=== PATIENT | female | born 1990 | race Two or more races ===

== ENCOUNTER 2025-04-11 06:16 | Observation (INO) | payer MEDICAID ==
[~2025-04-11] VITALS: Ht 160 cm; Wt 68.0 kg
[2025-04-11] MEDS: TERBUTALINE SULFATE 1 MG/ML 1ML VIAL SC SCH (15:20)
--- NOTE | 2025-04-11 16:28 | DVH ---
EXAM: US OBSTERICAL LIMITED HISTORY: Contractions/PTL Macro COMPARISON: None TECHNIQUE: Multiple transabdominal real-time grayscale sonographic images through the gravid uterus of the fetus with duplex Doppler color flow and M-mode spectral analysis Findings/Impression: Single live intrauterine in vertex presentation with heart rate of 151 bpm. The placenta is anterior in location without previa, accreta, or abruption. The cervix appears closed and measures 4.6 cm in length. Myomatous uterus.
[2025-04-11] MEDS ORDERED: PREN-96 PO (16:31)
--- NOTE | 2025-04-12 08:31 | DVHDS2 ---
Physician Discharge Progress N Final Diagnosis: macrosomia 31wks Operations or Procedures: Operations or Procedures nst reactive reviwed,sono Condition on Discharge: Good Disposition: Home Discharge Instructions: Diet: Regular Activity: No Restrictions, As Tolerated Medications: na Follow Up Care: Specialist: 3d Discharge Statement: "Patient was advised to return to the ER or call 911 if any headaches, dizziness, shortness of breath, chest pain, abdominal pain, bleeding, fevers, or worsening of medical condition. Patient was counseled about treatment plan, medications, possible side effects, patientverbalized understanding. All questions were answered to the best of my ability. This discharge took greater then 30 minutes in planning, reviewing doc umentation, counseling the patient, and discussing with other team members." Visit Coding OBGYN Date of Service: Apr 11, 2025 Billing Provider: ADENIKE RG DO ASSISTANT PROSECUTING ATTORNEY Common Visit Codes: [id number] OBS CARE (HIGH) ASSISTANT PROSECUTING ATTORNEY Procedure Codes: 99839-57- NON-STRESS TEST ADENIKE RG DO Apr 12, 2025 08:31
== END 2025-04-11 16:38 | disposition home or self-care (01) ==
LOC: LDRP 14:08 → UNDOADMOB 14:08 → LDRP 14:21
PROVIDERS: ADMIT Obstetrics & Gynecology; ATTEND Obstetrics & Gynecology
DX: O36.63X0 Maternal care for excessive fetal growth, third trimester, not applicable or unspecified (principal); Z3A.31 31 weeks gestation of pregnancy; Z79.899 Other long term (current) drug therapy
CPT/HCPCS: 59025; 76815; 81002; 94760; 96372; G0378; J3105

== ENCOUNTER 2025-04-18 10:10 | Observation (INO) | payer MEDICAID ==
[~2025-04-18 10:10] MED LIST: PREN-96 PO
--- NOTE | 2025-04-18 11:34 | DVH ---
BIOPHYSICAL PROFILE HISTORY: macro TECHNIQUE: Multiple transabdominal real-time grayscale sonographic images through the gravid uterus of the fetus with duplex Doppler color flow and M-mode spectral analysis FINDINGS: BIOPHYSICAL PROFILE: breathing score: 2 movement score: 2 tone score: 2 Quantitative SUSANNE score: 2 (SUSANNE: 12.9 Cm.) Total score: 8 The cervix was not seen Single live fetus in cephalic presentation. heart rate 121 beats per minute. Grade II anterior placenta without previa or abruption IMPRESSION: Biophysical profile score: 8/8
--- NOTE | 2025-04-18 12:28 | DVHDS2 ---
Physician Discharge Progress N Final Diagnosis: macrosomia Operations or Procedures: Operations or Procedures nst reactive reviwed,sono Condition on Discharge: Good Disposition: Home Discharge Instructions: Diet: Regular Activity: No Restrictions, As Tolerated Medications: na Follow Up Care: Specialist: 4d Discharge Statement: "Patient was advised to return to the ER or call 911 if any headaches, dizziness, shortness of breath, chest pain, abdominal pain, bleeding, fevers, or worsening of medical condition. Patient was counseled about treatment plan, medications, possible side effects, patientverbalized understanding. All questions were answered to the best of my ability. This discharge took greater then 30 minutes in planning, reviewing documenta tion, counseling the patient, and discussing with other team members." Visit Coding OBGYN Date of Service: Apr 18, 2025 Billing Provider: ADENIKE RG DO BAG MAKING MACHINE TENDER Common Visit Codes: [id number] OBS CARE (HIGH) BAG MAKING MACHINE TENDER Procedure Codes: 38309-64- NON-STRESS TEST ADENIKE RG DO Apr 18, 2025 12:28
== END 2025-04-18 11:06 | disposition home or self-care (01) ==
LOC: LDRP 10:10 → UNDOADMOB 10:10 → LDRP 10:13 → UNDODISOB 11:06
PROVIDERS: ADMIT Obstetrics & Gynecology; ATTEND Obstetrics & Gynecology
DX: O36.63X0 Maternal care for excessive fetal growth, third trimester, not applicable or unspecified (principal); Z3A.32 32 weeks gestation of pregnancy; Z79.899 Other long term (current) drug therapy; Z98.890 Other specified postprocedural states
CPT/HCPCS: 59025; 76819; 81002; 94760; G0378

== ENCOUNTER 2025-04-24 06:59 | Observation (INO) | payer MEDICAID ==
--- NOTE | 2025-04-24 13:11 | DVH ---
BIOPHYSICAL PROFILE HISTORY: Macro TECHNIQUE: Multiple transabdominal real-time grayscale sonographic images through the gravid uterus of the fetus with duplex Doppler color flow and M-mode spectral analysis FINDINGS: BIOPHYSICAL PROFILE: breathing score: 2 movement score: 2 tone score: 2 Quantitative SUSANNE score: 2 (SUSANNE: 13.2 Cm.) Total score: 8 The cervix was not seen Single live fetus in cephalic presentation. heart rate 138 beats per minute. Grade II anterior placenta without previa or abruption 3cm fibroid noted. Confirm with MRI IV contrast IMPRESSION: Biophysical profile score: 8/8 3cm fibroid noted. Confirm with MRI IV contrast
--- NOTE | 2025-04-24 14:04 | DVHDS2 ---
Physician Discharge Progress N Final Diagnosis: macrosomia 33wks Operations or Procedures: Operations or Procedures nst reactive reviwed,sono Condition on Discharge: Good Disposition: Home Discharge Instructions: Diet: Regular Activity: No Restrictions, As Tolerated Medications: na Follow Up Care: Specialist: 1w Discharge Statement: "Patient was advised to return to the ER or call 911 if any headaches, dizziness, shortness of breath, chest pain, abdominal pain, bleeding, fevers, or worsening of medical condition. Patient was counseled about treatment plan, medications, possible side effects, patientverbalized understanding. All questions were answered to the best of my ability. This discharge took greater then 30 minutes in planning, reviewing doc umentation, counseling the patient, and discussing with other team members." Visit Coding OBGYN Date of Service: Apr 24, 2025 Billing Provider: ADENIKE RG DO FLOOR WAXER Common Visit Codes: [id number] INP/OBS CARE (HIGH) FLOOR WAXER Procedure Codes: 88297-16- NON-STRESS TEST ADENIKE RG DO Apr 24, 2025 14:04
== END 2025-04-24 13:45 | disposition home or self-care (01) ==
LOC: LDRP 11:46 → UNDOADMOB 11:46 → LDRP 11:51
PROVIDERS: ADMIT Obstetrics & Gynecology; ATTEND Obstetrics & Gynecology
DX: O36.63X0 Maternal care for excessive fetal growth, third trimester, not applicable or unspecified (principal); Z3A.33 33 weeks gestation of pregnancy; Z79.899 Other long term (current) drug therapy; Z98.890 Other specified postprocedural states
CPT/HCPCS: 59025; 76819; 81002; 94760; G0378

== ENCOUNTER 2025-05-01 12:00 | Observation (INO) | payer MEDICAID ==
--- NOTE | 2025-05-01 13:58 | DVHDS2 ---
Physician Discharge Progress N Final Diagnosis: 34wks macrosomia Operations or Procedures: Operations or Procedures nst reactive reviwed,sono Condition on Discharge: Good Disposition: Home Discharge Instructions: Diet: Regular Activity: No Restrictions, As Tolerated Medications: na Follow Up Care: Specialist: 1w Discharge Statement: "Patient was advised to return to the ER or call 911 if any headaches, dizziness, shortness of breath, chest pain, abdominal pain, bleeding, fevers, or worsening of medical condition. Patient was counseled about treatment plan, medications, possible side effects, patientverbalized understanding. All questions were answered to the best of my ability. This discharge took greater then 30 minutes in planning, reviewing doc umentation, counseling the patient, and discussing with other team members." Visit Coding OBGYN Date of Service: May 01, 2025 Billing Provider: ADENIKE RG DO MOTOR BUS DRIVER Common Visit Codes: [id number] OBS CARE (HIGH) MOTOR BUS DRIVER Procedure Codes: 22689-99- NON-STRESS TEST ADENIKE RG DO May 01, 2025 13:58
--- NOTE | 2025-05-01 14:18 | DVH ---
BIOPHYSICAL PROFILE HISTORY: Macro TECHNIQUE: Multiple transabdominal real-time grayscale sonographic images through the gravid uterus of the fetus with duplex Doppler color flow and M-mode spectral analysis FINDINGS: BIOPHYSICAL PROFILE: breathing score: 2 movement score: 2 tone score: 2 Quantitative SUSANNE score: 2 (SUSANNE: 13.55 Cm.) Total score: 8/8 The cervix 3.3 cm and close Single live fetus in cephalic presentation. heart rate 150 beats per minute. Anterior Grade 2 placenta without previa or abruption Single live fetus at 34 weeks 0 days Biophysical profile score 8/8 corresponding to an SOFY of 06/12/2025 IMPRESSION: 1. Biophysical profile score: 8/8
== END 2025-05-01 14:00 | disposition home or self-care (01) ==
LOC: LDRP 12:00 → UNDOADMOB 12:00 → LDRP 12:27 → UNDODISOB 14:00
PROVIDERS: ADMIT Obstetrics & Gynecology; ATTEND Obstetrics & Gynecology
DX: O36.63X0 Maternal care for excessive fetal growth, third trimester, not applicable or unspecified (principal); Z3A.34 34 weeks gestation of pregnancy; Z79.899 Other long term (current) drug therapy; Z98.890 Other specified postprocedural states
CPT/HCPCS: 59025; 76819; 81002; 94760; G0378

== ENCOUNTER 2025-05-08 10:02 | Observation (INO) | payer MEDICAID ==
[~2025-05-08] VITALS: Ht 160 cm; Wt 78.9 kg
--- NOTE | 2025-05-08 11:57 | DVH ---
BIOPHYSICAL PROFILE HISTORY: Macrosomia Comparison Study: US BIOPHYSICAL PROFILE on DOS: 05/01/25, US BIOPHYSICAL PROFILE on DOS: 04/24/25, US BIOPHYSICAL PROFILE on DOS: 04/18/25, US OBSTERICAL LIMITED on DOS: 04/11/25 TECHNIQUE: Multiple real-time grayscale sonographic images through the gravid uterus of the fetus wi th duplex Doppler color flow and M-mode spectral analysis FINDINGS: BIOPHYSICAL PROFILE: breathing score: 2 movement score: 2 tone score: 2 Quantitative SUSANNE score: 2 (SUSANNE: 14.6 Cm.) Total score: 8 The cervix is not visualized Single live fetus in cephalic presentation. heart rate 152 beats per minute. Grade 2, anterior placenta without previa or abruption IMPRESSION: Biophysical profile score: 8 Possible nuchal cord.
== END 2025-05-08 11:56 | disposition home or self-care (01) ==
LOC: LDRP 10:02 → UNDOADMOB 10:02 → LDRP 10:16
PROVIDERS: ADMIT Obstetrics & Gynecology; ATTEND Obstetrics & Gynecology
DX: O36.63X0 Maternal care for excessive fetal growth, third trimester, not applicable or unspecified (principal); Z3A.35 35 weeks gestation of pregnancy; Z98.890 Other specified postprocedural states
CPT/HCPCS: 59025; 76819; 81002; 94760; G0378

== ENCOUNTER 2025-05-15 06:18 | Observation (INO) | payer MEDICAID ==
--- NOTE | 2025-05-19 11:56 | DVH ---
CLINICAL HISTORY: Macrosomia. COMPARISON: US BIOPHYSICAL PROFILE on DOS: 05/08/25, US BIOPHYSICAL PROFILE on DOS: 05/01/25, US BIOPHY SICAL PROFILE on DOS: 04/24/25 TECHNIQUE: biophysical profile was performed. Transabdominal sonographic images of the fetus we re obtained. FINDINGS: The fetus is in cephalic position. heart rate measures 143 BPM. Amniotic fluid index measures 16.4 cm. The placenta is anterior in position without evidence of previa or abruption. Hypoe choic structures are seen in the uterus, likely fibroids, measuring up to 3.4 x 1.6 x 4.5 cm. b ladder is prominent, measuring up to 34 mL. No nuchal cord visualized. BPP profile is an overall score of 8/8, with 2/2 points for breathing, with at least one episode of breathing over a 30 second duration during a 30 minute observation, 2/2 points for m ovements, with 3 or more discrete body or limb movements, 2/2 points for tone, with one or more episodes of extremity extension with return to flexion, or opening and closing of hand, and 2/ 2 points for amniotic fluid, with at least 1 pocket of amniotic fluid that measures 2 cm in 2 perpend icular planes. IMPRESSION: 1. BPP score of 8/8. 2. Prominence of the bladder, measuring up to 34 mL. 3. Hypoechoic structures in the uterus, likely fibroids as described above. 4. No nuchal cord visualized on this exam.
--- NOTE | 2025-05-20 17:30 | DVHDS2 ---
Discharge Summary Date of Admission May 19, 2025 at 10:04 Date of Discharge: May 19, 2025 Admitting Diagnosis 36-4/7 week history of macrosomia here for NST B biophysical profile which were performed Wounds: None Labs/Diagnostic Data: NST BPP ultrasound Brief Hx & Hospital Course: Patient is here for routine observation had found to have reassuring Consults/Reason for consult None Operations or Procedures NST ultrasound BPP Condition at Discharge: Good Final Diagnosis/Problems List 36-4/7 weeks macrosomia reassuring heart tones reassuring old Discharge Disposition: Home Discharge Instruct/Medications Diet: Regular Activity: No Restrictions, As Tolerated Follow Up/Referral: Follow up as scheduled for routine monitoring reassurance kick counts labor precautions Scheduled Vit W/ Ferrous Fumara ( One Daily), 1 TAB PO DAILY, (Reported) Discharge Statement: "Patient was advised to return to the ER or call 911 if any headaches, dizziness, shortness of breath, chest pain, abdominal pain, bleeding, fevers, or worsening of medical condition. Patient was counseled about treatment plan, medications, possible side effects, patientverbalized understanding. All questions were answered to the best of my ability. This discharge took greater then 30 minutes in planning, reviewing documentation, counseling the patient, and discussing with other team members." ASSESSMENT ASSESSMENT Assessment Visit Coding OBGYN Date of Service: May 19, 2025 Billing Provider: SAUMYA PARISI DO GREEN BUILDING ENERGY ENGINEER Common Visit Codes: [id number] INP/OBS CARE(MOD), 97323-[id number] INP/OBS CARE(HIGH), 56679-SEU/OBS SAME DATE (LOW) GREEN BUILDING ENERGY ENGINEER Procedure Codes: 54068-11- NON-STRESS TEST SAUMYA PARISI DO May 20, 2025 17:30
== END 2025-05-19 11:50 | disposition home or self-care (01) ==
LOC: LDRP 05-19 10:04
PROVIDERS: ADMIT Obstetrics & Gynecology; ATTEND Obstetrics & Gynecology
DX: O36.63X0 Maternal care for excessive fetal growth, third trimester, not applicable or unspecified (principal); Z3A.36 36 weeks gestation of pregnancy; Z98.890 Other specified postprocedural states
CPT/HCPCS: 59025; 76819; 81002; G0378

== ENCOUNTER 2025-05-23 09:50 | Observation (INO) | payer MEDICAID ==
--- NOTE | 2025-05-23 12:09 | DVH ---
BIOPHYSICAL PROFILE HISTORY: Macro Comparison Study: US BIOPHYSICAL PROFILE on DOS: 05/19/25, US BIOPHYSICAL PROFILE on DOS: 05/08/25, US B IOPHYSICAL PROFILE on DOS: 05/01/25, US BIOPHYSICAL PROFILE on DOS: 04/24/25, US BIOPHYSICAL PROFILE on DOS: 04/18/25 TECHNIQUE: Multiple real-time grayscale sonographic images through the gravid uterus of the fetus wi th duplex Doppler color flow and M-mode spectral analysis FINDINGS: BIOPHYSICAL PROFILE: breathing score: 2 movement score: 2 tone score: 2 Quantitative SUSANNE score: 2 (SUSANNE: 20.7 Cm.) Total score: 8 The cervix is not visualized Single live fetus in cephalic presentation. heart rate 135 beats per minute. Anterior placenta without previa or abruption IMPRESSION: Biophysical profile score: 8
--- NOTE | 2025-05-23 16:04 | DVHDS2 ---
Physician Discharge Progress N Final Diagnosis: MACROSOMIA 37WKS Operations or Procedures: Operations or Procedures NST REACTIVE REVIWED,SONO Condition on Discharge: Good Disposition: Home Discharge Instructions: Diet: Regular Activity: No Restrictions, As Tolerated Medications: NA Follow Up Care: Specialist: 3D Discharge Statement: "Patient was advised to return to the ER or call 911 if any headaches, dizziness, shortness of breath, chest pain, abdominal pain, bleeding, fevers, or worsening of medical condition. Patient was counseled about treatment plan, medications, possible side effects, patientverbalized understanding. All questions were answered to the best of my ability. This discharge took greater then 30 minutes in planning, reviewing doc umentation, counseling the patient, and discussing with other team members." Visit Coding OBGYN Date of Service: May 23, 2025 Billing Provider: ADENIKE RG DO WATER CHASER Common Visit Codes: [id number] OBS CARE (HIGH) WATER CHASER Procedure Codes: 50877-73- NON-STRESS TEST ADENIKE RG DO May 23, 2025 16:04
== END 2025-05-23 12:32 | disposition home or self-care (01) ==
LOC: LDRP 11:06 → UNDOADMOB 11:06 → LDRP 11:16 → UNDODISOB 12:32
PROVIDERS: ADMIT Obstetrics & Gynecology; ATTEND Obstetrics & Gynecology
DX: O36.63X0 Maternal care for excessive fetal growth, third trimester, not applicable or unspecified (principal); Z3A.37 37 weeks gestation of pregnancy; Z98.890 Other specified postprocedural states
CPT/HCPCS: 59025; 76819; 81002; 94760; G0378

== ENCOUNTER 2025-06-02 13:18 | Observation (INO) | payer MEDICAID | END 2025-06-02 14:51 | disposition home or self-care (01) | LOC: LDRP 13:18 | PROVIDERS: ADMIT Obstetrics & Gynecology; ATTEND Obstetrics & Gynecology | DX: Z36.89 Encounter for other specified antenatal screening (principal); Z3A.38 38 weeks gestation of pregnancy; Z98.890 Other specified postprocedural states | CPT/HCPCS: 59025; 76819; 81002; G0378 ==

== ENCOUNTER 2025-06-04 04:07 | Inpatient (IN) | payer MEDICAID ==
[2025-06-02 14:10] LABS: Hematocrit 35.7 % (36.0-46.0); Hemoglobin 12.4 g/dL (12.2-16.2); Mean Corpuscular Hemoglobin 30.5 pg (28.0-32.0); Mean Corpuscular Volume 87.7 fL (80.0-100.0); Nucleated Red Blood Cells % 0.1 %
[2025-06-02 14:28] LABS: INR 0.9 (0.9-1.15); Partial Thromboplastin Time 28.1 SEC (24.5-34.5); Prothrombin Time 9.6 sec (9.3-11.8)
[2025-06-02 14:32] LABS: Urine Protein, UAD Negative (Negative)
[2025-06-02 14:33] LABS: Alanine Aminotransferase 15 U/L (7-40); Albumin 3.7 g/dL (3.2-4.8); Anion Gap 10 (5-15); Calcium 8.9 mg/dL (8.7-10.4); Carbon Dioxide 24 mmol/L (20-31); Chloride 106 mmol/L (98-107); Glucose 79 mg/dL (74-106); Potassium 4.1 mmol/L (3.5-5.1); Sodium 140 mmol/L (136-145); Total Protein 6.2 g/dL (5.7-8.2)
[2025-06-02 14:34] LABS: Alkaline Phosphatase 173 U/L (46-116); BUN/Creatinine Ratio 8.9 (10.0-20.0); Bilirubin, Total 0.7 mg/dL (0.2-1.0); Blood Urea Nitrogen < 5 mg/dL (9-23)
[2025-06-02 15:28] LABS: Amphetamine Screen, Urine Neg (NEGATIVE); Barbiturate Scree,Urine Neg (NEGATIVE); Benzodiazephine Screen, Urine Neg (NEGATIVE); Cannabinoid Screen, Urine Neg (NEGATIVE); Cocaine Screen, Urine Neg (NEGATIVE); Opiate Scree,Urine Neg (NEGATIVE); Phencyclidine Screen, Urine Neg (NEGATIVE)
--- NOTE | 2025-06-03 21:41 | DVHHP ---
ADMIT DATE: 06/04/2025 CHIEF COMPLAINT: Desires repeat section. HISTORY OF PRESENT ILLNESS: The patient is a 1, para 1 female with EDC 06/12, estimated gestational age of 39 weeks, admitted for repeat section. The patient had previous section x1. She also has advanced maternal age. Her first trimester screening was late because of late entry. The patient has seen Dr. Graves. Ultrasound reveals multiple fibroids and impending macrosomia. PAST MEDICAL HISTORY: None. PAST SURGICAL HISTORY: . SOCIAL HISTORY: None. FAMILY HISTORY: None. AGENT LICENSING CLERK HISTORY: One section. REVIEW OF SYSTEMS: Consistent with HPI. PHYSICAL EXAMINATION: VITAL SIGNS: Stable, afebrile. HEENT: Within normal limits. CARDIOVASCULAR: Regular rate and rhythm. LUNGS: Clear to auscultation. BREASTS: Symmetrical, no masses. ABDOMEN: Gravid, positive heart. PELVIC: Deferred. EXTREMITIES: No clubbing, cyanosis, or edema. IMPRESSION: * Term , desires repeat section. * Previous section x1. * AMA. PLAN: Repeat section. Informed consent obtained. Risks and complications of surgery including infection, bleeding, hematoma formation, injury to bowel or bladder, surrounding organ, possibility of DVT, pulmonary embolism, and risks of anesthesia were discussed with the patient. Options reviewed. All questions answered. The patient fully understands. She wishes to proceed with planned procedure. DO JESSE Christian TID: [id number] RECEIPT: [id number]
[2025-06-04] VITALS (16 sets, daily range): BP systolic 90–114; BP diastolic 51–70; PULSE 50–69; RESP 16–20; TEMP 97.6–98.1; O2SAT 95–98
[~2025-06-04] VITALS: Ht 30.5 cm; Wt 0.5 kg
[2025-06-04] MEDS: LACTATED RINGER'S 1,000 ML IV ONE (05:03)
[2025-06-04] MEDS: LACTATED RINGER'S 1,000 ML IV SCH (05:30)
[2025-06-04] MEDS: SUCCINYLCHOLINE CHLORIDE 20 MG/ML 10ML VIAL IV ONE (06:43)
[2025-06-04] MEDS: TETRACAINE 1% INJ 2 ML VIAL IJ ONE (06:43)
[2025-06-04] MEDS ORDERED: BUPIVACAINE/DEXTROSE MPF 0.75% 2 ML AMP IT ONE (06:54)
[2025-06-04] MEDS ORDERED: MORPHINE SULF PF 5 MG/10 ML VIAL ONE (06:54)
[2025-06-04] MEDS ORDERED: MIDAZOLAM HCL 2MG/2ML 2ml VIAL (1mg/ml) ONE (06:54)
[2025-06-04] MEDS ORDERED: SODIUM CHLORIDE LOCK 10 ML ONE (06:54)
[2025-06-04] MEDS ORDERED: fentaNYL CITRATE 100 MCG/2 ML VL ONE (06:54)
[2025-06-04] MEDS ORDERED: ceFAZolin 1GM/50ML 50 ML IV SCH (07:00)
[2025-06-04] MEDS ORDERED: ONDANSETRON HCL 4 MG/2 ML VIAL IV PRN (07:00)
[2025-06-04] MEDS: GUM (CHEWING) 1 GUM CHEW CHEW ONE (07:00)
[2025-06-04] MEDS: LACT. RINGERS/OXYTOCIN 20UNITS 1,000 ML IV ONE (07:00)
[2025-06-04] MEDS ORDERED: DOCU-94 PO (07:01)
[2025-06-04] MEDS ORDERED: IBUP-1456 PO ×2 (07:01→20:22)
[2025-06-04] MEDS: ceFAZolin 2 GM/D5W50ml 50 ML IV ONE (07:01)
[2025-06-04] MEDS ORDERED: HYDR-4072 PO (07:02)
[2025-06-04] MEDS: diphenhdrAMINE HCL 50 MG/1 ML VL ONE (09:06)
[2025-06-04] MEDS: diphenhdrAMINE HCL 50 MG/1 ML VL IV ONE (09:07)
[2025-06-04] MEDS ORDERED: MORPHINE SULFATE INJ 2 MG/ml SYRG IV PRN (10:15)
[2025-06-04] MEDS: KETOROLAC TROMETH 30 MG/ML 1ML VIAL IV ONE (10:15)
[2025-06-04] MEDS ORDERED: HYDROmorphone HCL 2 MG/ML VL/or syr IV PRN ×2 (10:15)
[2025-06-04] MEDS ORDERED: METOCLOPRAMIDE HCL 5MG/ml INJ 2ml VIAL IV PRN (10:15)
[2025-06-04] MEDS ORDERED: NALOXONE HCL 0.4 MG/ML VIAL IV PRN ×2 (10:15)
[2025-06-04] MEDS ORDERED: diphenhdrAMINE HCL 50 MG/1 ML VL IV PRN (10:15)
[2025-06-04] MEDS ORDERED: MORPHINE SULFATE 4 MG/ML SYR/VIAL IV PRN ×2 (10:15→10:30)
--- NOTE | 2025-06-04 12:23 | DVHOP2 ---
Operative Report DATE OF OPERATION:06/04/25 PREOPERATIVE DIAGNOSES: [term preg desires rcs,early labor,ama,fibroid uterus] POSTOPERATIVE DIAGNOSES: [same] OPERATION PERFORMED: Repeat Section FINDINGS: [f] . Apgars of [8] and [8]. Weight [good] crying tone. [clear] amniotic fluid. Placenta and three-vessel were intact. Normal tubes, ovaries, and fibroid uterus. Moderate scar tissue. SURGEON: Linda Juarez D.O. WEIGHER AND CHARGER: heating technician, [vivi]. ANESTHESIOLOGIST: Osvaldo perry ANESTHESIA: [Duramorph spinal, regional]. COMPLICATIONS: [none]. ESTIMATED BLOOD LOSS: [800] mL. BLOOD PRODUCTS USED: [none]. PROCEDURE IN DETAIL: The patient was taken to the operating room, placed in sitting position, and spinal was placed without difficulty. She was then prepped and draped in a sterile fashion. A low Pfannenstiel incision was made scapel. At this point, it was carried down through the rectus fascia, nicked in the midline, and carried laterally. The rectus muscles were in the midline. Peritoneum was identified and entered with sharp dissection. Vesicouterine peritoneum was taken off the lower uterine segment. A lower uterine transverse incision was made with a scalpel down the chorionic membranes, ruptured with hemostat. was in vertex position. One hand was placed in the lower uterine segment. Head was essentially delivered spontaneously. Nose and mouth were bulb suctioned. Shoulders and torso were delivered without difficulty. Again, pharynx, nose, and mouth were re-suctioned with vigorous crying tone. Cord was cut. The was handed off to the awaiting Respiratory. At this point, umbilical blood sample was taken. Placenta was removed. Uterus was exteriorized, cleared off all clots and debris, irrigated, and closed with a double layer of 0-Vicryl. The vesicouterine peritoneum was incorporated into this closure. We had complete hemostasis. EBL was [800] mL. The instrument, lap, and sponge count was correct x1. The uterus was placed back into the peritoneum. The peritoneal cavity was re-inspected and the lower uterine incision with good hemostasis. We closed the peritoneum with running continuous of 2-0 Vicryl. The Rectus Fascia was closed with 0-PDS, running continuous, looped-0. The skin was closed undermined, irrigated, and close with sujata. CONDITION: The patient's and the infant's condition is stable and but guarded. Visit Coding OBGYN Date of Service: Jun 04, 2025 Billing Provider: LINDA JUAREZ DO HOUSING MANAGER Common Visit Codes: [id number] OBS CARE (HIGH) HOUSING MANAGER Procedure Codes: [id number] DELIVERY ONLY LINDA JUAREZ DO Jun 04, 2025 12:22
--- NOTE | 2025-06-04 12:24 | POSTOP ---
Post-Operative Note Post-Operative Note Preop Diagnosis term preg desires rcs,early labor,ama,fibroid uterus Postop Diagnosis: same Operation performed rcs Specimen baby girl,apgasr 8-8,fibroid uterus Anesthesia: Regional Anesthesiologist: william Blood Loss(fluid mgmt) 800ml Surgeon Linda Juarez Enterprise Cloud Architect vivi Implant na Complications & Mgmt none Date 06/04/25 Time 12:23 Visit Coding OBGYN Date of Service: Jun 04, 2025 Billing Provider: LINDA JUAREZ DO PARTS PRODUCT ANALYST Common Visit Codes: [id number] OBS CARE (HIGH) PARTS PRODUCT ANALYST Procedure Codes: [id number] DELIVERY ONLY LINDA JUAREZ DO Jun 04, 2025 12:24
[2025-06-04] MEDS: ACETAMINOPHEN IV 1000 MG/100ML (10MG/ML) IV PRN (13:12)
[2025-06-04] MEDS: ceFAZolin 1GM/50ML 50 ML IV SCH (14:49)
[2025-06-04] MEDS: diphenhdrAMINE HCL 50 MG/1 ML VL IV PRN (17:02)
[2025-06-04] MEDS ORDERED: KETOROLAC TROMETH 30 MG/ML 1ML VIAL IV PRN (17:30)
[2025-06-04] MEDS ORDERED: PREN-96 PO (20:22)
[2025-06-04 21:23] LABS: Hematocrit 32.8 % (36.0-46.0); Hemoglobin 11.3 g/dL (12.2-16.2); Mean Corpuscular Hemoglobin 29.8 pg (28.0-32.0); Mean Corpuscular Volume 86.3 fL (80.0-100.0); Nucleated Red Blood Cells % 0.1 %
[2025-06-05] VITALS (11 sets, daily range): BP systolic 90–125; BP diastolic 58–75; PULSE 49–87; RESP 15–19; TEMP 97.8–98.4; O2SAT 95–98
--- NOTE | 2025-06-05 06:36 | DVHPN2 ---
Progress Note Date Seen: Jun 05, 2025 Subjective S: bleeding is less, eating food without issues, denies lightheaded/dizziness, pain well controlled with medications, no concerns with urinating, passing flatus, no BM yet, ambulating well, well vital signs Vital Sign Date Time Temp Pulse Resp B/P (MAP) Pulse Ox O2 Delivery O2 Flow Rate FiO2 06/05/25 05:55 57 18 100/65 (77) 97 06/05/25 02:38 97.8 97.8 06/04/25 19:00 Room Air 06/04/25 08:24 0 06/04/25 08:24 98 Total Intake and Output 06/04/25 06/04/25 06/05/25 15:00 23:00 07:00 Intake Total 50 ml Output Total 775 ml 1850 ml 600 ml Balance -725 ml -1850 ml -600 ml medications Current Medications Medications Dose Ordered Sig/Rajat Route Start Time Stop Time Status Last Admin Dose Admin Lactated Ringer's 1,000 ml @ 125 mls/hr Q8H IV 06/04/25 05:00 06/05/25 00:43 125 MLS/HR Ondansetron HCl 4 mg Q4HP PRN IV 06/04/25 07:00 Morphine Sulfate 1 mg Q30M PRN IV 06/04/25 10:15 06/04/25 12:16 UNV Diphenhydramine HCl 25 mg Q4HP PRN IV 06/04/25 10:15 UNV Cefazolin Sodium 50 ml @ 100 mls/hr Q8H IV 06/04/25 15:00 06/05/25 07:29 06/04/25 23:02 100 MLS/HR Morphine Sulfate 2 mg Q4HP PRN IV 06/04/25 10:30 Diphenhydramine HCl 25 mg Q4HP PRN IV 06/04/25 10:30 06/04/25 17:02 25 MG Acetaminophen 1,000 mg Q8HPRN PRN IV 06/04/25 10:30 06/05/25 10:29 06/05/25 04:50 1,000 MG Ketorolac Tromethamine 30 mg Q6HPRN PRN IV 06/04/25 17:30 06/09/25 17:29 laboratory and microbiology Laboratory Tests 06/04/25 21:10 06/02/25 13:52 Test 06/02/25 13:52 Range/Units Serum Glucose 79 74-106 mg/dL Objective O: VSS Chest: heart sounds normal and lung sounds clear bilaterally Abd: soft, non-tender, fundus 2-U/firm/midline, active bowel sounds, no rebound or guarding Incision: sylke dressing open to air, clean/dry/intact Ext: Non-tender, No edema, 2+ BLE DTRs Lochia: minimal See lab results Problems(with codes): (1) S/P repeat low transverse (2) Precipitous drop in hematocrit Assessment/Plan A/P: 35yo now POD#1 s/p repeat -Continue with routine PP care Plan discussed with: Patient, Spouse Visit Coding OBGYN Date of Service: Jun 05, 2025 Billing Provider: DREW PEREZ CNM FLORIST Common Visit Codes: [id number] INP/OBS CARE(HIGH) DREW PEREZ CNM Jun 05, 2025 06:36
[2025-06-05 07:03] LABS: Hematocrit 34.9 % (36.0-46.0); Hemoglobin 12.0 g/dL (12.2-16.2); Mean Corpuscular Hemoglobin 30.2 pg (28.0-32.0); Mean Corpuscular Volume 87.4 fL (80.0-100.0); Nucleated Red Blood Cells % 0.0 %
[2025-06-05] MEDS ORDERED: LACTATED RINGER'S 1,000 ML IV SCH (12:00)
[2025-06-05] MEDS ORDERED: BISACODYL 10 MG RECT SUPP PR PRN (12:00)
[2025-06-05] MEDS: SIMETHICONE 80 MG CHEWABLE TABLET PO SCH (12:00)
[2025-06-05] MEDS ORDERED: D5W/LACTATED RINGERS 1,000 ML IV SCH (12:00)
[2025-06-05] MEDS ORDERED: SODIUM CHLORIDE 0.9% 1,000 ML IV SCH (12:00)
[2025-06-05] MEDS ORDERED: HYDROcodone-ACET 5/325MG TAB PO PRN ×2 (12:00)
[2025-06-05] MEDS: IBUPROFEN 800 MG TAB PO PRN (12:26)
[2025-06-05] MEDS: DOCUSATE SOD 100 MG CAP PO PRN (23:33)
--- NOTE | 2025-06-06 00:12 | DVHPN2 ---
Progress Note Date Seen: Jun 06, 2025 Subjective S: bleeding is less, eating food without issues, denies lightheaded/dizziness, pain well controlled with oral medications, no concerns with urinating, no flatus/BM yet, ambulating well, vital signs Vital Sign Date Time Temp Pulse Resp B/P (MAP) Pulse Ox O2 Delivery O2 Flow Rate FiO2 06/05/25 19:00 Room Air 06/05/25 19:00 98.4 61 18 103/69 (80) 96 98.4 06/04/25 08:24 0 06/04/25 08:24 98 medications Current Medications Medications Dose Ordered Sig/Rajat Route Start Time Stop Time Status Last Admin Dose Admin Morphine Sulfate 1 mg Q30M PRN IV 06/04/25 10:15 06/04/25 12:16 UNV Diphenhydramine HCl 25 mg Q4HP PRN IV 06/04/25 10:15 UNV Lactated Ringer's 1,000 ml @ 100 mls/hr Q10H IV 06/05/25 12:00 Dimethicone 80 mg QID PO 06/05/25 12:00 06/05/25 21:53 80 MG Bisacodyl 10 mg DAILYP PRN ND 06/05/25 12:00 Ibuprofen 800 mg Q8HP PRN PO 06/05/25 12:00 06/05/25 12:26 800 MG Acetaminophen/ Hydrocodone Bitart 1 tab Q4HPRN PRN PO 06/05/25 12:00 Acetaminophen/ Hydrocodone Bitart 2 tab Q4HPRN PRN PO 06/05/25 12:00 Docusate Sodium 200 mg DAILYPRN PRN PO 06/06/25 00:00 06/05/25 23:33 200 MG laboratory and microbiology Laboratory Tests 06/05/25 06:08 06/02/25 13:52 Test 06/02/25 13:52 Range/Units Serum Glucose 79 74-106 mg/dL Objective O: VSS Chest: heart sounds normal and lung sounds clear bilaterally Abd: soft, non-tender, fundus 1-U/firm/midline, active bowel sounds, no rebound or guarding Incision: sylke dressing open to air, clean/dry/intact Ext: Non-tender, No edema, 2+ BLE DTRs Lochia: minimal See lab results Assessment/Plan A: 35yo now POD#2 s/p repeat Rh+ Rubella Immune P: D/C home today if pt passes flatus Pt encouraged to ambulate in the halls more. Rx sent to pharmacy precautions and preeclampsia warning signs reviewed F/U with [facility] office in 2 weeks Plan discussed with: Patient, Spouse Visit Coding OBGYN Date of Service: Jun 06, 2025 Billing Provider: DREW PEREZ CNM FILING AND POLISHING SUPERVISOR Common Visit Codes: [id number] INP/OBS CARE(HIGH) DREW PEREZ CNM Jun 06, 2025 00:12
--- NOTE | 2025-06-06 00:14 | DVHDS2 ---
Obstetrics Discharge Summary Obstetrics Discharge Summary Date of Admission: Jun 04, 2025 Date of Discharge: Jun 06, 2025 Reason For Admission: Section (Repeat, scheduled) Procedures: NST Intrapartum Procedures: (LTCS) Procedures: Antibiotics, Hct/date: (06/05/25), Hgb/date: (06/05/25) Operative Complicat: None Discharge Diagnosis: Term -Delivered Discharge Information: Activity (as tolerated, no heavy lifting and nothing in the vagina for 6 weeks), Diet (Routine), Medications (Rx sent), Instructions (Routine), Discharge to (Home), Accompanied by (partner), Discarge date (06/06/25) Visit Coding OBGYN Date of Service: Jun 06, 2025 Billing Provider: DREW PEREZ CNM ELECTRICIAN APPRENTICE POWERHOUSE Common Visit Codes: [id number]/OBS DISCH DAY <30MIN DREW PEREZ CNM Jun 06, 2025 00:14
[2025-06-06 03:00] VITALS: BP 119/68; PULSE 53; RESP 17; TEMP 99.1; O2SAT 95
[2025-06-06 07:00] VITALS: BP 94/73; PULSE 48; RESP 16; TEMP 97.7; O2SAT 95; O2SAT 97
[2025-06-06 11:00] VITALS: BP 105/62; PULSE 57; RESP 16; TEMP 97.8; O2SAT 95
[2025-06-06 15:00] VITALS: BP 105/66; PULSE 48; RESP 16; TEMP 98; O2SAT 95
[2025-06-06 18:30] VITALS: BP 114/70; PULSE 77; RESP 18; TEMP 97.8; O2SAT 99
[2025-06-06 23:22] VITALS: BP 111/67; PULSE 62; RESP 17; TEMP 98.1; O2SAT 97
[2025-06-07 03:00] VITALS: BP 108/68; PULSE 68; RESP 17; TEMP 98.2; O2SAT 98
[2025-06-07 06:40] VITALS: BP 121/78; PULSE 56; RESP 15; TEMP 98.1; O2SAT 98
--- NOTE | 2025-06-07 06:47 | DVHPN2 ---
Progress Note Date Seen: Jun 07, 2025 Matt Rincon is sitting up in bed with baby in bassinet at bedside. Patient would like to go home today, as she was kept another weight due to baby's decrease in weight. -Lochia minimal -Regular diet well tolerated. -Ambulating and voiding well w/o feeling dizzy or lightheaded -Pain relieved with oral medication PRN -Passing flatus but no BM yet. -Combo feeding w/o problem vital signs Vital Sign Date Time Temp Pulse Resp B/P (MAP) Pulse Ox O2 Delivery O2 Flow Rate FiO2 06/07/25 03:00 98.2 68 17 108/68 (81) 98 98.2 06/06/25 18:30 Room Air medications Current Medications Medications Dose Ordered Sig/Rajat Route Start Time Stop Time Status Last Admin Dose Admin Morphine Sulfate 1 mg Q30M PRN IV 06/04/25 10:15 06/04/25 12:16 UNV Diphenhydramine HCl 25 mg Q4HP PRN IV 06/04/25 10:15 UNV Lactated Ringer's 1,000 ml @ 100 mls/hr Q10H IV 06/05/25 12:00 Dimethicone 80 mg QID PO 06/05/25 12:00 06/06/25 22:05 80 MG Bisacodyl 10 mg DAILYP PRN ME 06/05/25 12:00 Ibuprofen 800 mg Q8HP PRN PO 06/05/25 12:00 06/07/25 04:51 800 MG Acetaminophen/ Hydrocodone Bitart 1 tab Q4HPRN PRN PO 06/05/25 12:00 Acetaminophen/ Hydrocodone Bitart 2 tab Q4HPRN PRN PO 06/05/25 12:00 Docusate Sodium 200 mg DAILYPRN PRN PO 06/06/25 00:00 06/05/25 23:33 200 MG laboratory and microbiology Laboratory Tests 06/05/25 06:08 06/02/25 13:52 Test 06/02/25 13:52 Range/Units Serum Glucose 79 74-106 mg/dL Objective -A&O x4. No apparent distress. Affect appropriate -Afebrile, VSS -Chest: heart and lung sounds normal. -Breasts: Nipples intact w/o cracks or soreness -Abdomen: normal BS, soft, non-tender, no rebound or guarding, fundus firm @ U- 1, -Lower abdominal incision site with dressing dry and intact. No edema, erythema or induration -Extremities: no edema or tenderness Problems(with codes): (1) Precipitous drop in hematocrit (2) S/P repeat low transverse Assessment/Plan ASSESSMENT 35 yo now Post operative & ppd # 3 s/p repeat Section, doing well. Blood Type: O+ Combo feeding Rubella Immune PLAN -Continue pain management with oral medications as previously ordered -Increase fluid intake and fiber in diet to promote regular bowel movements, Laxative PRN -Educated patient on self-care and warning signs to watch for, including PPH, PPD, infection, and pre-eclampsia -Continue routine care and anticipate discharge today Plan discussed with: Patient, Spouse Visit Coding OBGYN Date of Service: Jun 07, 2025 Billing Provider: RANDALL HERNANDEZ CNM PATIENT FLOW COORDINATOR Common Visit Codes: [id number] INP/OBS CARE(HIGH) RANDALL HERNANDEZ CNM Jun 07, 2025 06:47
[2025-06-07 07:00] VITALS: PULSE 52; RESP 18; O2SAT 100
== END 2025-06-07 10:51 | disposition home or self-care (01) | DRG 540 ==
LOC: LDRP 04:07
PROVIDERS: ADMIT Obstetrics & Gynecology; ATTEND Obstetrics & Gynecology
PROC: 10D00Z1 Extraction of Products of Conception, Low, Open Approach (ICD-10-PCS; principal; 2025-06-04 07:11)
DX: O34.13 Maternal care for benign tumor of corpus uteri, third trimester (principal); D25.9 Leiomyoma of uterus, unspecified; O34.211 Maternal care for low transverse scar from previous cesarean delivery; Z37.0 Single live birth; Z3A.39 39 weeks gestation of pregnancy
CPT/HCPCS: 36415; 59025; 80053; 80307; 81001; 85025; 85610; 85730; 86780; 86803; 86850; 86900; 86901; 94760; 94762; 96360; 96361; 96365; 96366; G0378; J0131; J0330; J2250; J2590